=== PATIENT | female | born 2000 | race American Indian/Alaskan Native ===

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

== ENCOUNTER 2018-03-16 23:41 | Emergency (ER) | payer MEDICAID ==
[2018-03-16 23:42] VITALS: BMI 20.3
[2018-03-16 23:50] VITALS: RESP 14; O2SAT 99
[2018-03-17] MEDS ORDERED: Sodium Chloride 0.9% 1,000 ML IV ONE (00:04)
[2018-03-17] MEDS ORDERED: Sodium Chloride 0.9% 500 ML IV ONE ×2 (00:04→02:49)
--- NOTE | 2018-03-17 00:04 | C.PDOC ---
History Of Present Illness 17 y/o female presents to the ED complaining of abdominal pain. Of note, patient is currently 8 weeks . Patient also reports some nausea and vomiting. No fevers, chills, dysuria, vaginal bleeding, or recent fall/trauma. Time Seen by Provider: 03/17/18 00:00 Chief Complaint (Nursing): Abdominal Pain History Per: Patient History/Exam Limitations: no limitations Onset/Duration Of Symptoms: Days Current Symptoms Are (Timing): Still Present Past Medical History Reviewed: Historical Data, Nursing Documentation, Vital Signs Vital Signs: Last Vital Signs Temp 98.6 F 03/16/18 23:47 Pulse 79 03/16/18 23:47 Resp 14 03/16/18 23:47 BP 109/67 03/16/18 23:47 Pulse Ox 99 03/17/18 00:31 - Medical History PMH: Pancreatitis Denies: Chronic Kidney Disease Surgical History: No Surg Hx Family History: States: Unknown Family Hx - Social History Hx Tobacco Use: Yes Hx Alcohol Use: Yes (WAS HEAVY USE, STOPPED SEP 2017) Hx Substance Use: No - Immunization History Hx Tetanus Toxoid Vaccination: Yes Hx Influenza Vaccination: Yes Review Of Systems Except As Marked, All Systems Reviewed And Found Negative. Constitutional: Negative for: Fever, Chills Gastrointestinal: Positive for: Nausea, Vomiting, Abdominal Pain. Negative for : Diarrhea Genitourinary: Negative for: Dysuria, Hematuria, Vaginal Discharge, Vaginal Bleeding Physical Exam - Physical Exam Appears: Non-toxic, No Acute Distress Skin: Normal Color, Warm, Dry Head: Atraumatic, Normacephalic Eye(s): bilateral: Normal Inspection, PERRL, EOMI Nose: Normal Oral Mucosa: Moist Neck: Normal ROM, Supple Chest: Symmetrical Cardiovascular: Rhythm Regular, No Murmur Respiratory: Normal Breath Sounds, No Rales, No Rhonchi, No Wheezing Gastrointestinal/Abdominal: Soft, Tenderness (generalized), No Guarding, No Rebound Back: Normal Inspection, No CVA Tenderness, No Vertebral Tenderness Extremity: Bilateral: Atraumatic, Normal Color And Temperature, Normal ROM Pulses: Left Dorsalis Pedis: Normal, Right Dorsalis Pedis: Normal Neurological/Psych: Oriented x3, Normal Speech, Other (No focal deficits) ED Course And Treatment - Laboratory Results Result Diagrams: 03/17/18 00:13 05/27/18 00:13 O2 Sat by Pulse Oximetry: 99 (RA) Pulse Ox Interpretation: Normal Medical Decision Making Medical Decision Making: Initial Impression: 17 y/o F with abdominal pain and vomiting during Time: 00:03 Initial Plan: * CMP * CBC w/ differential * Beta-HCG quant * UA * Urine culture * IVF hydration * Pending pelvic and abdominal ultrasounds Disposition Counseled Patient/Family Regarding: Diagnosis - Disposition Referrals: [facility] [Outside] Disposition: HOME/ ROUTINE Disposition Time: 03:43 Condition: STABLE Prescriptions: Nitrofurantoin Macrocrystals [Macrobid] 1 cap PO BID #14 cap Instructions: Nausea and Vomiting of , Hyperemesis Gravidarum, Urinary Tract Infections in Adults Forms: [facility] (Polish) - POA Present On Arrival: None - Clinical Impression Clinical Impression: UTI (urinary tract infection) during , Hyperemesis gravidarum - Scribe Statement The provider has reviewed the documentation as recorded by the Scribe (Petra Rain) Provider Attestation: All medical record entries made by the Scribe were at my direction and personally dictated by me. I have reviewed the chart and agree that the record accurately reflects my personal performance of the history, physical exam, medical decision making, and the department course for this patient. I have also personally directed, reviewed, and agree with the discharge instructions and disposition.
[2018-03-17 00:21] LABS: BASO % 0.5 % (0.0-2.0); EOS # 0.2 K/uL (0.0-0.7); EOS % 2.4 % (0.0-4.0); HEMOGLOBIN 14.7 g/dL (11.0-16.0); LYMPH # 1.8 K/uL (1.0-4.3); LYMPH % 26.7 % (20.0-40.0); MEAN CELL VOLUME 88.5 fL (81.0-99.0); MEAN CORPUSCULAR HEMOGLOBIN 31.6 pg (27.0-31.0); MEAN CORPUSCULAR HGB CONC 35.7 g/dL (33.0-37.0); MEAN PLATELET VOLUME 8.6 fL (7.2-11.7); MONO # 0.6 K/uL (0.0-0.8); MONO % 8.6 % (0.0-10.0); NEUT # 4.3 K/uL (1.8-7.0); NEUT % 61.8 % (50.0-75.0); NRBC % 0.1 % (0.0-2.0); RBC 4.64 Mil/uL (3.80-5.20); RED CELL DISTRIBUTION WIDTH 12.5 % (11.5-14.5); WHITE BLOOD COUNT 6.9 K/uL (4.8-10.8)
[2018-03-17 00:32] LABS: ALB/GLOB RATIO 1.3 (1.0-2.1); ALBUMIN 4.7 g/dL (3.5-5.0); ALT/SGPT 22 U/L (9-52); AST/SGOT 22 U/L (14-36); BLOOD UREA NITROGEN 9 mg/dL (7-17); CALCIUM 9.4 mg/dl (8.6-10.4); GFR AFRICAN-AMERICAN > 60; GFR NON-AFRICAN AMERICAN > 60
[2018-03-17 00:39] LABS: SQUAMOUS EPITHIAL 25 /hpf (0-5); URINE BACTERIA RARE (<OCC); URINE BILIRUBIN NEGATIVE (NEGATIVE); URINE BLOOD NEGATIVE (NEGATIVE); URINE CLARITY Hazy (Clear); URINE COLOR Amber (YELLOW); URINE GLUCOSE (UA) NORMAL (Normal); URINE LEUKOCYTE ESTERASE NEG Leu/uL (Negative); URINE PROTEIN 2+ mg/dL (NEGATIVE)
--- NOTE | 2018-03-17 03:33 | US ---
EXAM: US , Transvaginal EXAM DATE/TIME: 03/17/2018 12:03 AM CLINICAL HISTORY: 17 years old, female; Pain; Other: Abd pain; Gestational age or lmp: 3-27-18; TECHNIQUE: Real-time transvaginal obstetrical ultrasound of the maternal pelvis and a first trimester with image documentation. Transvaginal imaging was used for better evaluation of the fetus and adnexa. COMPARISON: Report from a prior pelvic CT of 11/16/2017, which describes a dermoid cyst. The prior study itself is currently unavailable. FINDINGS: Uterus: Measures 9.9 x 4.9 x 6.3 cm. Single intrauterine gestation identified. pole and yolk sac are seen. Estimated gestational age is 6 weeks, 1 day, based on the crown rump length. Estimated delivery date is 11/08/2018. heart motion visualized, at 123 beats per minute. Note that the anatomy, amniotic fluid volume, and placental position cannot be evaluated at this early gestational age. Cervix appears closed, and is normal in length. Right ovary: Within normal limits in appearance. Measures 3.4 x 1.9 x 3.3 cm. Flow seen in the right ovary on color and Doppler imaging, with no evidence of torsion. Left adnexa: Left ovary is seen. Flow is detected in the left ovarian parenchyma on color imaging. In the left adnexa, superior to the left ovary, there is a large 8.3 x 5.3 x 7.9 cm mass identified. This has ultrasound features highly suggestive of an exophytic left ovarian dermoid. It appears diffusely echogenic, with posterior sound attenuation. It has well-defined margins. Free fluid: None seen. IMPRESSION: 6 week, 1 day intrauterine with heart motion. Large 8.3 x 7.9 cm left adnexal mass, most likely representing an exophytic left ovarian dermoid. There is no evidence of left ovarian torsion. See above for remaining findings.
--- NOTE | 2018-03-17 03:40 | US ---
EXAM: US Abdomen Complete EXAM DATE/TIME: 03/17/2018 12:00 AM CLINICAL HISTORY: 17 years old, female; Pain; Abdominal pain; Generalized; ; Additional info: Generalized abd pain TECHNIQUE: Real-time ultrasound of the abdomen (complete) with image documentation. COMPARISON: No relevant prior studies available. FINDINGS: Gallbladder: Within normal limits in appearance, without evidence of gallstones, significant gallbladder wall thickening, or pericholecystic fluid. Reportedly negative sonographic Yeung's sign. Common bile duct: Does not appear abnormally dilated, measuring less than 6 mm in diameter. Liver: Within normal limits in appearance. Measures 13 cm in length. Normal flow seen in the main portal vein on color and Doppler imaging. Pancreas: Incompletely seen due to gas. The pancreatic duct is visualized, and measures 3 mm, which is at the upper limits of normal. Right kidney: Within normal limits in appearance. Measures 11 cm in length. Left kidney: Within normal limits in appearance. Measures 9.3 cm in length. Spleen: Within normal limits in appearance. Measures 9 cm in length. Aorta: Imaged portions appear unremarkable. Inferior vena cava: Imaged portions appear unremarkable. IMPRESSION: Pancreatic duct is top normal in size, 3 mm. This finding is of uncertain clinical significance. Otherwise negative exam. No gallstones or cholecystitis. See above for remaining findings.
[2018-03-17 03:58] VITALS: BP 115/78; PULSE 70; TEMP 98
== END 2018-03-17 03:58 | disposition home or self-care (01) ==
LOC: C.ER 23:41
DX: O23.41 Unspecified infection of urinary tract in pregnancy, first trimester (principal); O21.0 Mild hyperemesis gravidarum; Z3A.01 Less than 8 weeks gestation of pregnancy
CPT/HCPCS: 76700; 76817; 80053; 81001; 84702; 85025; 87086; 96360; 96361; 99283; J7040

== ENCOUNTER 2018-10-12 11:19 | Emergency (ER) | payer MEDICAID ==
[2018-10-12 11:19] VITALS: BMI 20.3
--- NOTE | 2018-10-12 12:32 | C.PDOC ---
History Of Present Illness 18 y/o female presents to the ED complaining of recurrent vomiting and abdominal pain for the past 3-4 weeks. Patient states the vomiting comes and goes, occurring almost daily, associated with decreased appetite. She denies any asso ciated fever, diarrhea, cough, or blood in the vomitus or stool. States she was previously diagnosed with H. pylori but was not treated. Patients auditor internal moved out of state and she is pending appointment with a new specialist on 10/28/18. Time Seen by Provider: 10/12/18 11:49 Chief Complaint (Nursing): Abdominal Pain History Per: Patient History/Exam Limitations: no limitations Onset/Duration Of Symptoms: Intermittent Episodes Current Symptoms Are (Timing): Still Present Location Of Pain/Discomfort: Epigastric Past Medical History Reviewed: Historical Data, Nursing Documentation, Vital Signs Vital Signs: Last Vital Signs Temp 98.1 F 10/12/18 11:22 Pulse 92 H 10/12/18 11:22 Resp 20 10/12/18 11:22 BP Pulse Ox 100 10/12/18 11:22 - Medical History PMH: Pancreatitis Denies: Chronic Kidney Disease Family History: States: Unknown Family Hx - Social History Hx Tobacco Use: Yes Hx Alcohol Use: Yes (WAS HEAVY USE, STOPPED SEP 2017) Hx Substance Use: No - Immunization History Hx Tetanus Toxoid Vaccination: Yes Hx Influenza Vaccination: No Review Of Systems Except As Marked, All Systems Reviewed And Found Negative. Constitutional: Negative for: Fever, Chills ENT: Negative for: Ear Pain Cardiovascular: Negative for: Chest Pain, Edema Respiratory: Negative for: Cough, Shortness of Breath Gastrointestinal: Positive for: Nausea, Vomiting, Abdominal Pain. Negative for: Diarrhea, Hematochezia, Hematemesis Genitourinary: Negative for: Dysuria, Frequency, Incontinence Musculoskeletal: Negative for: Neck Pain Neurological: Negative for: Weakness, Dizziness Physical Exam - Physical Exam Appears: Non-toxic, No Acute Distress Skin: Normal Color, Warm, Dry, No Rash Head: Atraumatic, Normacephalic Eye(s): bilateral: Normal Inspection, PERRL, EOMI Oral Mucosa: Moist Neck: Normal ROM, Supple Chest: Symmetrical Cardiovascular: Rhythm Regular, No Murmur Respiratory: Normal Breath Sounds, No Accessory Muscle Use Gastrointestinal/Abdominal: Bowel Sounds (normal), Soft, Tenderness (mild epigastric tenderness), No Distention, No Guarding, No Rebound Back: No CVA Tenderness, No Vertebral Tenderness Extremity: Normal ROM, No Swelling Extremity: Bilateral: Atraumatic, Normal Color And Temperature, Normal ROM Neurological/Psych: Oriented x3, Normal Speech Gait: Steady ED Course And Treatment - Laboratory Results Result Diagrams: 10/12/18 13:52 10/12/18 13:52 O2 Sat by Pulse Oximetry: 100 (RA) Pulse Ox Interpretation: Normal - Other Rad Pelvic/ US X-Ray: Read By Radiologist Interpretation: Accession No. : [id number]. Patient Name / ID : MUSA POLLARD / [id number]. Exam Date : 10/12/2018 14:13:37 ( Approved ). Study Comment : Sex / Age : F / 18Y. Creator : You Bonilla MD. Dictator : You Bonilla MD. Cylinder Press Feeder : Personalized Living Manager : You Bonilla MD. Approver2 : Report Date : 10/12/2018 15:50:46. My Comment : . Date of service: 10/12/2018. PROCEDURE: OB Pelvic Ultrasound. HISTORY: , pelvic pain. 08/24/2018. COMPARISON: 03/17/2018. FINDINGS: UTERUS: Gestational sac: 17 mm equivalent to 6 weeks 0 days gestational age. No pole identified. 2 mm yolk sac visualized. Heart rate: No cardiac activity observed. age (Ultrasound estimated): 6 weeks 0 days. Erin-gestational hemorrhage: None. Date of delivery (Ultrasound estimated) : 06/07/2019. Uterus measures 9.8 x 5.6 x 6.2 cm. Normal in size and appearance. CERVIX: Measures 3.8 cm. Long and closed. No cervical abnormality seen. RIGHT OVARY: Measures 2.6 x 2.3 x 2.2 cm. No mass lesion. Normal flow. LEFT OVARY: Measures 2.8 x 2.2 x 1.4 cm. Echogenic left ovarian mass, 7.9 x 6.3 x 8.9 cm, with posterior acoustic shadowing, consistent with dermoid tumor. The this was seen on prior ultrasound examination as well, and corresponds to a mass on CT examination of 11/16/2017 with characteristic appearance of dermoid tumor. No differential diagnosis. Normal flow demonstrated in left ovary. FREE FLUID: There is fluid in the cul-de-sac. OTHER FINDINGS: None. IMPRESSION: Intrauterine gestational sac corresponding to approximately 6 weeks 0 days, without identifiable pole or cardiac activity. No subchorionic hemorrhage. Follow-up with transvaginal pelvic ultrasound and serial beta HCG is advised. Incidental left ovarian dermoid tumor. No evidence of ovarian torsion. Medical Decision Making Medical Decision Making: Plan: Blood work and urine sent for analysis. Patient given IV fluids, 20 mg Pepcid, and 4 mg Zofran. Progress: Labs reviewed. (+) Urine HCG. Ordered pelvic/OB ultrasound. Ultrasound demonstrates IUP, age of 6 weeks, with no heart tones. Findings discussed with patient. Beta-hcg was ordered but the patient eloped prior to discharge. Disposition - Disposition Disposition: ELOPEMENT - ER ONLY Disposition Time: 16:37 Condition: STABLE Additional Instructions: Follow up with the medical doctor within 1-2 days. Return if worsened, Instructions: Stomach Pain in Early Forms: [employer] [employer] (Latvian) - Clinical Impression Clinical Impression: Abdominal pain, Hyperemesis gravidarum - PA / INSIDE SALES RECRUITER / Resident Statement MD/DO has reviewed & agrees with the documentation as recorded. - Scribe Statement The provider has reviewed the documentation as recorded by the Sparkleiblaila Rain All medical record entries made by the Sparkleibe were at my direction and personally dictated by me. I have reviewed the chart and agree that the record accurately reflects my personal performance of the history, physical exam, medical decision making, and the department course for this patient. I have also personally directed, reviewed, and agree with the discharge instructions and disposition.
[2018-10-12] MEDS ORDERED: Sodium Chloride 0.9% 1,000 ML IV ONE (12:42)
[2018-10-12 13:18] LABS: HCG,QUALITATIVE URINE POSITIVE (NEGATIVE)
[2018-10-12 13:24] LABS: SQUAMOUS EPITHIAL 1 /hpf (0-5); URINE BACTERIA OCC (<OCC); URINE BILIRUBIN NEGATIVE (NEGATIVE); URINE BLOOD NEGATIVE (NEGATIVE); URINE CLARITY Clear (Clear); URINE COLOR Yellow (YELLOW); URINE GLUCOSE (UA) NORMAL (Normal); URINE LEUKOCYTE ESTERASE NEG Leu/uL (Negative); URINE PROTEIN 1+ mg/dL (NEGATIVE)
[2018-10-12 13:56] LABS: BASO % 0.2 % (0.0-2.0); EOS # 0.1 K/uL (0.0-0.7); EOS % 1.3 % (0.0-4.0); HEMOGLOBIN 14.7 g/dL (11.0-16.0); LYMPH # 1.4 K/uL (1.0-4.3); MEAN CELL VOLUME 91.6 fL (81.0-99.0); MEAN CORPUSCULAR HEMOGLOBIN 31.1 pg (27.0-31.0); MEAN PLATELET VOLUME 8.7 fL (7.2-11.7); MONO # 0.6 K/uL (0.0-0.8); MONO % 6.2 % (0.0-10.0); NEUT % 78.3 % (50.0-75.0); RBC 4.72 Mil/uL (3.80-5.20); RED CELL DISTRIBUTION WIDTH 13.2 % (11.5-14.5); WHITE BLOOD COUNT 10.2 K/uL (4.8-10.8)
[2018-10-12 14:09] LABS: ALB/GLOB RATIO 1.4 (1.0-2.1); ALBUMIN 4.3 g/dL (3.5-5.0); ALT/SGPT 28 U/L (9-52); AST/SGOT 20 U/L (14-36); BLOOD UREA NITROGEN 9 mg/dL (7-17); CALCIUM 9.4 mg/dl (8.6-10.4); GFR NON-AFRICAN AMERICAN > 60; LIPASE 43 U/L (23-300)
--- NOTE | 2018-10-12 15:54 | US ---
Date of service: 10/12/2018 PROCEDURE: OB Pelvic Ultrasound HISTORY: , pelvic pain 08/24/2018 COMPARISON: 03/17/2018 FINDINGS: UTERUS: Gestational sac: 17 mm equivalent to 6 weeks 0 days gestational age No pole identified. 2 mm yolk sac visualized Heart rate: No cardiac activity observed age (Ultrasound estimated): 6 weeks 0 days Erin-gestational hemorrhage: None. Date of delivery (Ultrasound estimated) : 06/07/2019 Uterus measures 9.8 x 5.6 x 6.2 cm. Normal in size and appearance. CERVIX: Measures 3.8 cm. Long and closed. No cervical abnormality seen. RIGHT OVARY: Measures 2.6 x 2.3 x 2.2 cm. No mass lesion. Normal flow. LEFT OVARY: Measures 2.8 x 2.2 x 1.4 cm. Echogenic left ovarian mass, 7.9 x 6.3 x 8.9 cm, with posterior acoustic shadowing, consistent with dermoid tumor. The this was seen on prior ultrasound examination as well, and corresponds to a mass on CT examination of 11/16/2017 with characteristic appearance of dermoid tumor. No differential diagnosis. Normal flow demonstrated in left ovary. FREE FLUID: There is fluid in the cul-de-sac OTHER FINDINGS: None. IMPRESSION: Intrauterine gestational sac corresponding to approximately 6 weeks 0 days, without identifiable pole or cardiac activity. No subchorionic hemorrhage. Follow-up with transvaginal pelvic ultrasound and serial beta HCG is advised. Incidental left ovarian dermoid tumor. No evidence of ovarian torsion.
[2018-10-12 16:37] VITALS: BP 122/70; PULSE 70; RESP 16; TEMP 98.2
[2018-10-12 16:39] VITALS: O2SAT 100
== END 2018-10-12 16:00 | disposition left against medical advice (07) ==
LOC: C.ER 11:19
DX: O21.0 Mild hyperemesis gravidarum (principal); O26.891 Other specified pregnancy related conditions, first trimester; R10.9 Unspecified abdominal pain; Z3A.01 Less than 8 weeks gestation of pregnancy; Z72.0 Tobacco use
CPT/HCPCS: 76805; 76817; 80053; 81001; 83690; 84702; 84703; 85025; 96361; 96374; 96375; 99285; J2405; J7030

== ENCOUNTER 2018-10-15 10:53 | Emergency (ER) | payer MEDICAID ==
[2018-10-15 10:53] VITALS: BMI 20.3
[2018-10-15] MEDS ORDERED: Sodium Chloride 0.9% 1,000 ML IV ONE (11:09)
--- NOTE | 2018-10-15 11:10 | C.PDOC ---
History Of Present Illness 18 y/o female, A1, presents to the ER complaining of abdominal pain, nausea, and vomiting which has been present for the past 1 month. Patient states that she vomited x4 yesterday and vomited x3 today. Patient denies having headache, fever, chills, vaginal bleeding, vaginal discharge, dysuris, and hematuria. Time Seen by Provider: 10/15/18 11:08 Chief Complaint (Nursing): Abdominal Pain History Per: Patient History/Exam Limitations: no limitations Onset/Duration Of Symptoms: Days Current Symptoms Are (Timing): Still Present Severity: Moderate Past Medical History Reviewed: Historical Data, Nursing Documentation, Vital Signs Vital Signs: Last Vital Signs Temp 98 F 10/15/18 11:01 Pulse 96 H 10/15/18 11:01 Resp 18 10/15/18 11:01 BP 115/73 10/15/18 11:01 Pulse Ox 98 10/15/18 11:01 - Medical History PMH: Pancreatitis Denies: Chronic Kidney Disease Surgical History: No Surg Hx Family History: States: No Known Family Hx - Social History Hx Tobacco Use: Yes Hx Alcohol Use: Yes (WAS HEAVY USE, STOPPED SEP 2017) Hx Substance Use: No - Immunization History Hx Tetanus Toxoid Vaccination: Yes Hx Influenza Vaccination: No Review Of Systems Except As Marked, All Systems Reviewed And Found Negative. Constitutional: Negative for: Fever, Chills Gastrointestinal: Positive for: Nausea, Vomiting, Abdominal Pain Genitourinary: Negative for: Dysuria, Hematuria, Vaginal Discharge, Vaginal Bleeding Neurological: Negative for: Headache Physical Exam - Physical Exam Appears: Non-toxic, No Acute Distress Skin: Normal Color, Warm, Dry Head: Atraumatic, Normacephalic Eye(s): bilateral: Normal Inspection Nose: Normal Oral Mucosa: Moist Neck: Supple Chest: Symmetrical Cardiovascular: Rhythm Regular Respiratory: Normal Breath Sounds, No Rales, No Rhonchi, No Wheezing Gastrointestinal/Abdominal: Soft, Tenderness (diffuse tenderness), No Guarding, No Rebound Neurological/Psych: Oriented x3, Normal Speech ED Course And Treatment - Laboratory Results Result Diagrams: 10/15/18 11:27 10/15/18 11:27 O2 Sat by Pulse Oximetry: 98 (RA) Pulse Ox Interpretation: Normal - CT Scan/US Obstetrics US Other Rad Studies (CT/US): Read By Radiologist, Radiology Report Reviewed CT/US Interpretation: Date of service: 10/15/2018. PROCEDURE: OB Pelvic Ultrasound. HISTORY: ABDOMINAL PAIN. LMP: 08/24/2018 suggests 7 week 3 day gestation. COMPARISON: Obstetric ultrasound 10/12/2018. FINDINGS: UTERUS: Gestational sac: Single intrauterine gestation. Heart rate: 139 bpm. age (Ultrasound estimated): 6 weeks 1 day based on mean crown-rump length measurement of 0.39 cm. Erin-gestational hemorrhage: None. Date of delivery (Ultrasound estimated) : Yolk sac is identified as well, measuring 0.25 cm. Mean gestational sac size 2.28 cm. Uterus measures 9.3 x 6.2 x 6.1 cm. Normal in size and appearance, anteverted. CERVIX: Measures 3.11 cm. Long and closed. No cervical abnormality seen. RIGHT OVARY: Measures 3.0 x 2.6 x 3.4 cm. No mass lesion. Normal flow. LEFT OVARY: Measures 2.6 x 1.8 x 1.8 cm. A large mass is identified in the left adnexal compartment anteriorly, measuring 7.9 x 5.8 x 8.9 cm with prominent posterior acoustic shadowing corresponding to dermoid tumor seen in prior obstetric ultrasound 10/12/2018 as well as abdomen and pelvis CT with contrast 11/16/2017. Normal flow. FREE FLUID: None. OTHER FINDINGS: None. IMPRESSION: Single viable intrauterine gestation is identified with average ultrasonic age of 6 weeks 1 day based on crown-rump length measurement. No definitive gestational related hemorrhage appreciable. No suspicious pelvic fluid collection evident. Left adnexal dermoid tumor reiterated. No pattern to suggest ovarian torsion bilaterally. Continued clinical follow-up advised. Medical Decision Making Medical Decision Making: Plan: --Labs --UA --US-Transvag. --Tylenol PO --Zofran IV --IV Fluids Updates: Patient was evaluated by , COIL WINDER. recommended that patient be discharged with prescriptions for Zofran, Pepcid, and Vitamin B6. On re-evaluation, patient states that her symptoms have resolved. Patient has been instructed about the BRAT diet. She has been discharged and instructed to follow up with her COIL WINDER on 10/17/18 as scheduled. Disposition Counseled Patient/Family Regarding: Studies Performed, Diagnosis, Need For Followup, Rx Given - Disposition Referrals: Non [facility] Provider, [Non-Staff] - Disposition: HOME/ ROUTINE Disposition Time: 15:43 Condition: STABLE Additional Instructions: FOLLOW UP WITH YOUR COIL WINDER ON 10/17/18 SCHEDULED. BREAD, BANANA, RICE, APPLE SAUCE, TEA, TOAST DIET RECOMMENDED. DRINK PLENTY OF WATER, GATODADE. IF SYMPTOMS GET WORSE OR ANY NEW CONCERNING SYMPTOMS DEVELOP RETURN TO ED. Prescriptions: Famotidine [Pepcid] 20 mg PO BID #30 tab Vit #76/Iron,Carb/FA [Prenatabs Rx Tablet] 1 each PO DAILY #30 tablet Pyridoxine [Vitamin B6] 1 tab PO DAILY #30 tab Ondansetron ODT [Zofran ODT] 1 odt PO TID #15 odt Instructions: Acid Reflux (Gastroesophageal Reflux Disease) During , - The Second Month Forms: [employer] [facility] / [employer] (Portuguese) - Clinical Impression Clinical Impression: , Abdominal pain, Vomiting - PA / NANOTECHNOLOGIST / Resident Statement MD/DO has reviewed & agrees with the documentation as recorded. - Scribe Statement The provider has reviewed the documentation as recorded by the Carlita Griffin Provider Attestation All medical record entries made by the Carlita were at my direction and personally dictated by me. I have reviewed the chart and agree that the record accurately reflects my personal performance of the history, physical exam, medical decision making, and the department course for this patient. I have also personally directed, reviewed, and agree with the discharge instructions and disposition.
[2018-10-15 11:21] LABS: SQUAMOUS EPITHIAL 37 /hpf (0-5); URINE BILIRUBIN NEGATIVE (NEGATIVE); URINE BLOOD NEGATIVE (NEGATIVE); URINE CLARITY Hazy (Clear); URINE COLOR Yellow (YELLOW); URINE GLUCOSE (UA) NORMAL (Normal); URINE LEUKOCYTE ESTERASE NEG Leu/uL (Negative); URINE PROTEIN 1+ mg/dL (NEGATIVE)
[2018-10-15 11:22] LABS: HCG,QUALITATIVE URINE POSITIVE (NEGATIVE)
[2018-10-15] MEDS ORDERED: Sodium Chloride 0.9% 1,000 ML ONE (11:29)
[2018-10-15 11:31] LABS: BASO % 0.6 % (0.0-2.0); EOS # 0.1 K/uL (0.0-0.7); EOS % 1.5 % (0.0-4.0); LYMPH # 1.1 K/uL (1.0-4.3); LYMPH % 16.3 % (20.0-40.0); MEAN CELL VOLUME 89.7 fL (81.0-99.0); MEAN CORPUSCULAR HGB CONC 34.5 g/dL (33.0-37.0); MEAN PLATELET VOLUME 8.4 fL (7.2-11.7); MONO # 0.5 K/uL (0.0-0.8); MONO % 7.4 % (0.0-10.0); NEUT # 4.9 K/uL (1.8-7.0); NEUT % 74.2 % (50.0-75.0); RBC 4.83 Mil/uL (3.80-5.20); RED CELL DISTRIBUTION WIDTH 13.2 % (11.5-14.5); WHITE BLOOD COUNT 6.7 K/uL (4.8-10.8)
[2018-10-15 11:49] LABS: ALB/GLOB RATIO 1.3 (1.0-2.1); ALBUMIN 4.4 g/dL (3.5-5.0); ALT/SGPT 23 U/L (9-52); AST/SGOT 23 U/L (14-36); BLOOD UREA NITROGEN 11 mg/dL (7-17); CALCIUM 9.6 mg/dl (8.6-10.4); GFR NON-AFRICAN AMERICAN > 60
--- NOTE | 2018-10-15 14:25 | US ---
Date of service: 10/15/2018 PROCEDURE: OB Pelvic Ultrasound HISTORY: ABDOMINAL PAIN LMP: 08/24/2018 suggests 7 week 3 day gestation. COMPARISON: Obstetric ultrasound 10/12/2018. FINDINGS: UTERUS: Gestational sac: Single intrauterine gestation. Heart rate: 139 bpm. age (Ultrasound estimated): 6 weeks 1 day based on mean crown-rump length measurement of 0.39 cm. Erin-gestational hemorrhage: None. Date of delivery (Ultrasound estimated) : Yolk sac is identified as well, measuring 0.25 cm. Mean gestational sac size 2.28 cm. Uterus measures 9.3 x 6.2 x 6.1 cm. Normal in size and appearance, anteverted. CERVIX: Measures 3.11 cm. Long and closed. No cervical abnormality seen. RIGHT OVARY: Measures 3.0 x 2.6 x 3.4 cm. No mass lesion. Normal flow. LEFT OVARY: Measures 2.6 x 1.8 x 1.8 cm. A large mass is identified in the left adnexal compartment anteriorly, measuring 7.9 x 5.8 x 8.9 cm with prominent posterior acoustic shadowing corresponding to dermoid tumor seen in prior obstetric ultrasound 10/12/2018 as well as abdomen and pelvis CT with contrast 11/16/2017. Normal flow. FREE FLUID: None. OTHER FINDINGS: None. IMPRESSION: Single viable intrauterine gestation is identified with average ultrasonic age of 6 weeks 1 day based on crown-rump length measurement. No definitive gestational related hemorrhage appreciable. No suspicious pelvic fluid collection evident. Left adnexal dermoid tumor reiterated. No pattern to suggest ovarian torsion bilaterally. Continued clinical follow-up advised.
[2018-10-15 14:43] VITALS: TEMP 97.6
[2018-10-15 14:47] LABS: BARBITURATES, UR NEGATIVE (NEGATIVE); BENZODIAZEPINES, UR NEGATIVE (NEGATIVE); OPIATES, UR NEGATIVE (NEGATIVE); PHENCYCLIDINE, UR NEGATIVE (NEGATIVE)
[2018-10-15 16:28] VITALS: BP 109/68; PULSE 86; RESP 18
[2018-10-15 16:35] VITALS: O2SAT 98
== END 2018-10-15 16:28 | disposition home or self-care (01) ==
LOC: C.ER 10:53
DX: O21.9 Vomiting of pregnancy, unspecified (principal); O26.891 Other specified pregnancy related conditions, first trimester; R10.9 Unspecified abdominal pain; Z3A.01 Less than 8 weeks gestation of pregnancy
CPT/HCPCS: 76805; 76817; 80053; 80324; 80345; 80346; 80349; 80353; 80358; 80361; 81001; 83992; 84702; 84703; 85025; 96361; 96374; 99285; J2405; J7030

== ENCOUNTER 2018-10-20 01:39 | Emergency (ER) | payer MEDICAID ==
[2018-10-20 01:40] VITALS: BMI 20.3
[2018-10-20] MEDS ORDERED: Dextrose 5%/0.45% NS 1,000 ML IV SCH (02:45)
[2018-10-20] MEDS ORDERED: Dextrose 5%/0.45% NS 1,000 ML IV ONE (02:53)
[2018-10-20 02:55] LABS: BASO # 0.1 K/uL (0.0-0.2); BASO % 0.8 % (0.0-2.0); EOS # 0.2 K/uL (0.0-0.7); HEMOGLOBIN 13.9 g/dL (11.0-16.0); LYMPH # 1.6 K/uL (1.0-4.3); LYMPH % 19.7 % (20.0-40.0); MEAN CELL VOLUME 90.1 fL (81.0-99.0); MEAN CORPUSCULAR HEMOGLOBIN 30.7 pg (27.0-31.0); MEAN PLATELET VOLUME 8.7 fL (7.2-11.7); MONO # 0.6 K/uL (0.0-0.8); MONO % 6.7 % (0.0-10.0); NEUT # 5.9 K/uL (1.8-7.0); NEUT % 70.8 % (50.0-75.0); RBC 4.52 Mil/uL (3.80-5.20); WHITE BLOOD COUNT 8.3 K/uL (4.8-10.8)
[2018-10-20 03:06] LABS: ALB/GLOB RATIO 1.3 (1.0-2.1); ALT/SGPT 21 U/L (9-52); AST/SGOT 26 U/L (14-36); BLOOD UREA NITROGEN 5 mg/dL (7-17); GFR NON-AFRICAN AMERICAN > 60; LIPASE 61 U/L (23-300)
--- NOTE | 2018-10-20 03:57 | C.PDOC ---
History Of Present Illness 18 y/o female, whose LMP was beginning of August and is positive for , comes in for the third time since 10/12/18 for nausea, vomiting, and epigastric pain. Patient states she vomited 3 times today and is taking medications that were prescribed to her last visit, but states they are not working. Denies any vaginal bleeding or urinary symptoms. Time Seen by Provider: 10/20/18 02:13 Chief Complaint (Nursing): GI Problem History Per: Patient History/Exam Limitations: no limitations Onset/Duration Of Symptoms: Days Current Symptoms Are (Timing): Still Present Past Medical History Reviewed: Historical Data, Nursing Documentation, Vital Signs Vital Signs: Last Vital Signs Temp 98.3 F 10/20/18 01:51 Pulse 89 10/20/18 01:51 Resp 18 10/20/18 01:51 BP 112/66 10/20/18 01:51 Pulse Ox 100 10/20/18 01:51 - Medical History PMH: Gastritis, Pancreatitis Denies: Chronic Kidney Disease Family History: States: No Known Family Hx - Social History Hx Tobacco Use: Yes Hx Alcohol Use: No Hx Substance Use: No - Immunization History Hx Tetanus Toxoid Vaccination: Yes Hx Influenza Vaccination: No Hx Pneumococcal Vaccination: No Review Of Systems Constitutional: Negative for: Fever Cardiovascular: Negative for: Chest Pain Respiratory: Negative for: Shortness of Breath Gastrointestinal: Positive for: Nausea, Vomiting, Abdominal Pain (epigastric) Genitourinary: Negative for: Frequency, Incontinence, Vaginal Bleeding Skin: Negative for: Rash Physical Exam - Physical Exam Appears: Non-toxic, No Acute Distress Skin: Warm, Dry Head: Atraumatic, Normacephalic Eye(s): bilateral: Normal Inspection Oral Mucosa: Dry (mild) Neck: Supple Chest: Symmetrical Cardiovascular: Rhythm Regular, No Murmur Respiratory: Normal Breath Sounds, No Rales, No Rhonchi, No Wheezing Gastrointestinal/Abdominal: Soft, Tenderness (mild epigastric tenderness), No Distention, No Guarding, No Rebound Back: No CVA Tenderness Extremity: Normal ROM Extremity: Bilateral: Atraumatic, Normal Color And Temperature, Normal ROM Neurological/Psych: Oriented x3, Normal Speech, Normal Cognition ED Course And Treatment - Laboratory Results Result Diagrams: 10/20/18 02:49 10/20/18 02:49 O2 Sat by Pulse Oximetry: 100 (RA) Pulse Ox Interpretation: Normal Medical Decision Making Medical Decision Making: Plan: --Bloodwork --Urinalysis --Pepcid IV --Reglan IV --IV fluids 0400 pt lying comfortably in bed,. no vomiting. does not want to stay in ed any longer. tolerates po. will d/c with reglan. Disposition Counseled Patient/Family Regarding: Diagnosis, Need For Followup, Rx Given - Disposition Disposition: HOME/ ROUTINE Disposition Time: 04:01 Condition: IMPROVED Additional Instructions: Take one tab metclopromide every 8 hours if needed for nausea. Follow up with gynecology as soon as possible. Return to er for worse symptoms, vagina bleeding. abdominal pain, any other concerns. Prescriptions: Metoclopramide [Reglan] 10 mg PO Q8 #12 tab Instructions: Nausea and Vomiting of (DC) Forms: [employer] (Nepali), General Discharge Instructions - Clinical Impression Clinical Impression: Hyperemesis gravidarum - PA / CAR SHAKEOUT OPERATOR / Resident Statement MD/DO has reviewed & agrees with the documentation as recorded. - Scribe Statement The provider has reviewed the documentation as recorded by the Scriblaila Dos Santos All medical record entries made by the Sparkleiblaila were at my direction and personally dictated by me. I have reviewed the chart and agree that the record accurately reflects my personal performance of the history, physical exam, medical decision making, and the department course for this patient. I have also personally directed, reviewed, and agree with the discharge instructions and disposition.
[2018-10-20 04:17] LABS: SQUAMOUS EPITHIAL 3 /hpf (0-5); URINE BILIRUBIN NEGATIVE (NEGATIVE); URINE BLOOD NEGATIVE (NEGATIVE); URINE CLARITY Clear (Clear); URINE COLOR Yellow (YELLOW); URINE GLUCOSE (UA) NORMAL (Normal); URINE LEUKOCYTE ESTERASE NEG Leu/uL (Negative); URINE PROTEIN NEGATIVE (NEGATIVE); URINE UROBILINOGEN NORMAL mg/dL (0.2-1.0)
[2018-10-20 04:20] VITALS: BP 113/73; PULSE 82; RESP 16; TEMP 98.8
[2018-10-20 05:12] VITALS: O2SAT 100
== END 2018-10-20 04:20 | disposition home or self-care (01) ==
LOC: C.ER 01:39
DX: O21.0 Mild hyperemesis gravidarum (principal); Z3A.00 Weeks of gestation of pregnancy not specified
CPT/HCPCS: 80053; 81001; 83690; 84702; 85025; 96374; 99284; J2765; J7042

== ENCOUNTER 2018-12-17 22:11 | Emergency (ER) | payer MEDICAID ==
[2018-12-17 22:12] VITALS: BMI 20.3
[2018-12-17 22:30] VITALS: O2SAT 99
[2018-12-17] MEDS ORDERED: Sodium Chloride 0.9% 1,000 ML IV ONE (22:42)
--- NOTE | 2018-12-17 22:42 | C.PDOC ---
History Of Present Illness Patient complaining of abdominal pain, midepigastric burning, nausea and some vomiting. No f/c. Decreased po intake.. Pills for her gastritis "not helping" Time Seen by Provider: 12/17/18 22:42 Chief Complaint (Nursing): Abdominal Pain History Per: Patient History/Exam Limitations: no limitations Onset/Duration Of Symptoms: Days Current Symptoms Are (Timing): Still Present Context: Other Severity: Moderate Pain Scale Rating Of: 4 Location Of Pain/Discomfort: Epigastric Radiation Of Pain To:: None Quality Of Discomfort: Dull, Aching, Burning Associated Symptoms: Nausea, Vomiting, Diarrhea. denies: Fever, Chills Exacerbating Factors: None Alleviating Factors: None Last Bowel Movement: Today Recent travel outside of the [place]: No Additional History Per: Patient Abnormal Vaginal Bleeding: No Past Medical History Reviewed: Historical Data, Nursing Documentation, Vital Signs Vital Signs: Last Vital Signs Temp 99.3 F 12/17/18 22:26 Pulse 81 12/17/18 22:26 Resp 20 12/17/18 22:26 BP 116/73 12/17/18 22:26 Pulse Ox 99 12/17/18 22:26 - Medical History PMH: Gastritis, Pancreatitis Denies: Chronic Kidney Disease Family History: States: No Known Family Hx - Social History Hx Tobacco Use: Yes Hx Alcohol Use: No Hx Substance Use: No - Immunization History Hx Tetanus Toxoid Vaccination: Yes Hx Influenza Vaccination: No Hx Pneumococcal Vaccination: No Review Of Systems Constitutional: Negative for: Fever, Chills Cardiovascular: Negative for: Chest Pain Respiratory: Negative for: Shortness of Breath Gastrointestinal: Positive for: Nausea, Vomiting, Abdominal Pain Genitourinary: Negative for: Dysuria Musculoskeletal: Negative for: Back Pain Skin: Negative for: Rash Neurological: Negative for: Weakness Psych: Negative for: Anxiety Physical Exam - Physical Exam Appears: Non-toxic Skin: Warm, Dry Oral Mucosa: Dry Chest: Symmetrical Cardiovascular: Rhythm Regular Respiratory: No Rales, No Rhonchi, No Wheezing Gastrointestinal/Abdominal: Bowel Sounds (tympanic to percussion), Soft, Tenderness, No Distention, No Guarding, No Rebound Back: No CVA Tenderness Extremity: Normal ROM Extremity: Bilateral: Atraumatic Neurological/Psych: Oriented x3 Gait: Steady ED Course And Treatment - Laboratory Results Result Diagrams: 12/17/18 23:26 12/17/18 23:26 O2 Sat by Pulse Oximetry: 99 Against Medical Advice - AMA Patient Left Against Medical Advice: The patient declines admission to the hospital and wishes to leave the Emergency Department. This action is against my medical advice. This decision was made with informed refusal. The patient was told that admission to the hospital is necessary. Explanation of the reasons why were discussed. The risks of leaving were explained to the patient and include, but are not limited to, worsening of known or currently unknown conditions, permanent disability and from undiagnosed or untreated conditions. The patient has the capacity to make this informed decision and understands my explanation of the current medical problem and risks of leaving. The patient voluntarily accepts these risks and signed an AMA form documenting our conversation. The patient was given the opportunity to ask questions and reconsider. The patient was encouraged to return to the Emergency Department at any time for further care. Disposition Counseled Patient/Family Regarding: Studies Performed, Diagnosis, Need For Followup, Rx Given - Disposition Referrals: Halley Robles MD [Medical Doctor] - Disposition: HOME/ ROUTINE Disposition Time: 22:42 Condition: FAIR Additional Instructions: Please return if symptoms recur Prescriptions: Ondansetron ODT [Zofran ODT] 1 odt PO BID PRN #6 odt PRN Reason: Nausea/Vomiting Pantoprazole Sodium [Protonix] 40 mg PO DAILY #14 ect Instructions: Acute Abdomen (Belly Pain), Adult (DC) Forms: [employer] (Scottish) - Clinical Impression Clinical Impression: Abdominal pain, Vomiting
[2018-12-17] MEDS ORDERED: Sodium Chloride 0.9% 1,000 ML ONE (23:20)
[2018-12-17 23:29] LABS: BASO % 0.3 % (0.0-2.0); EOS # 0.5 K/uL (0.0-0.7); LYMPH # 1.5 K/uL (1.0-4.3); LYMPH % 16.7 % (20.0-40.0); MEAN CORPUSCULAR HEMOGLOBIN 30.8 pg (27.0-31.0); MEAN CORPUSCULAR HGB CONC 33.1 g/dL (33.0-37.0); MEAN PLATELET VOLUME 9.2 fL (7.2-11.7); MONO # 0.6 K/uL (0.0-0.8); MONO % 6.3 % (0.0-10.0); NEUT # 6.5 K/uL (1.8-7.0); NEUT % 70.7 % (50.0-75.0); RBC 4.55 Mil/uL (3.80-5.20); RED CELL DISTRIBUTION WIDTH 13.7 % (11.5-14.5); WHITE BLOOD COUNT 9.1 K/uL (4.8-10.8)
[2018-12-17 23:39] LABS: INR 1.1; PROTHROMBIN TIME 11.7 SECONDS (9.7-12.2)
[2018-12-17 23:41] LABS: SQUAMOUS EPITHIAL 9 /hpf (0-5); URINE BACTERIA FEW (<OCC); URINE BILIRUBIN NEGATIVE (NEGATIVE); URINE BLOOD NEGATIVE (NEGATIVE); URINE CLARITY Hazy (Clear); URINE COLOR Yellow (YELLOW); URINE GLUCOSE (UA) NORMAL (Normal); URINE LEUKOCYTE ESTERASE TRACE Leu/uL (Negative); URINE PROTEIN NEGATIVE (NEGATIVE); URINE UROBILINOGEN NORMAL mg/dL (0.2-1.0)
[2018-12-17 23:42] LABS: BLOOD UREA NITROGEN 13 mg/dL (7-17); CALCIUM 8.8 mg/dl (8.6-10.4); GFR NON-AFRICAN AMERICAN > 60; LIPASE 337 U/L (23-300)
[2018-12-17 23:43] LABS: HCG,QUALITATIVE URINE NEGATIVE (NEGATIVE)
[2018-12-17 23:46] LABS: ALB/GLOB RATIO 1.4 (1.0-2.1); ALBUMIN 4.3 g/dL (3.5-5.0); ALT/SGPT 9 U/L (9-52); AST/SGOT 40 U/L (14-36)
[2018-12-17] MEDS ORDERED: Iodixanol 320 MG/ML 100 ML BOTTLE IV ONE (23:54)
[2018-12-18 01:45] VITALS: BP 103/61; PULSE 75; RESP 18; TEMP 98.2
--- NOTE | 2018-12-18 10:33 | CT ---
Date of service: 12/18/2018 PROCEDURE: CT Abdomen and Pelvis. HISTORY: Mid epigastric pain COMPARISON: None. TECHNIQUE: Contiguous axial images of the abdomen and pelvis performed following intravenous injection of approximately 100 cc Visipaque 320 contrast material. Additional 2D sagittal and coronal reformats generated. And Sagittal reformats generated. Radiation dose: Total exam DLP = 337.69 mGy-cm. This CT exam was performed using one or more of the following dose reduction techniques: Automated exposure control, adjustment of the mA and/or kV according to patient size, and/or use of iterative reconstruction technique. FINDINGS: LOWER THORAX: Heart size within range of normal. No significant pericardial effusion. Lung bases clear. No evidence of effusion or basilar pneumothorax. LIVER: Is liver exhibits normal size measuring approximately 15 0.5 cm in CC dimension. No obvious hepatic masses or collections. Portal and splenic veins are opacified. GALLBLADDER AND BILE DUCTS: The gallbladder is physiologically distended. No evidence of intraluminal gallbladder calculi. PANCREAS: The pancreas exhibits relatively normal appearance however there is mild dilatation of the pancreatic duct nonspecific. No obvious pancreatic mass is identified. Follow-up right upper quadrant ultrasound and/or MRCP may be prudent for further evaluation. SPLEEN: Spleen exhibits normal size and attenuation pattern without mass collection or calcification. ADRENALS: No adrenal lesions. KIDNEYS AND URETERS: The kidneys exhibit relatively symmetric nephrograms. No evidence of nephrolithiasis or hydronephrosis. BLADDER: The urinary bladder is incompletely distended and probably partially compressed by the aforementioned dermoid cyst. REPRODUCTIVE: There is a large (approximately 6.3 x 6.5 x 5.4 cm) rounded fatty lesion seen in the anterior pelvis with what appears represent a small endoluminal surface calcification and an adjacent rounded soft tissue component which also projects into the lumen. This most likely represents a large the dermoid cyst APPENDIX: Appendix is not seen with complete certainty on this exam however no obvious inflammatory changes right lower quadrant of the abdomen. BOWEL: Evaluation of the bowel is somewhat limited due to the lack of oral contrast material. The stomach is partially distended with food debris liquid and air. There are multiple partially fluid-filled loops of small bowel the few of which are slightly distended located in the right aspect of the abdomen and pelvis region.. Findings are nonspecific and could represent a mild ileus or mild enteritis. Clinical correlation recommended. No evidence of acute mechanical bowel obstruction.. Moderate amount of stool seen within the cecum and proximal ascending colon however the remaining colon is relatively collapsed and therefore difficult to evaluate. Note however that there is slight wall thickening of the distal transverse descending and sigmoid colon in part due to collapse however the possibility of a mild colitis not excluded. Clinical correlation recommended. PERITONEUM: Unremarkable. No fluid collection. No free air. There appears to be a small amount of free fluid in the pelvis LYMPH NODES: Unremarkable. No enlarged lymph nodes. VASCULATURE: Unremarkable. No aortic aneurysm. No aortic atherosclerotic calcification or mural plaque present. BONES: No fracture or destructive lesion. OTHER FINDINGS: None. IMPRESSION: Large dermoid cyst as described. There are multiple fluid-filled loops of small bowel few which are slightly distended all of which are predominately located in the right abdomen and pelvis region suggesting an ileus or mild enteritis. Questionable wall thickening of the sigmoid and descending as well as distal transverse colon; findings could represent a mild enterocolitis. Clinical correlation recommended.
== END 2018-12-18 01:25 | disposition left against medical advice (07) ==
LOC: C.ER 22:11
DX: R10.9 Unspecified abdominal pain (principal); R11.10 Vomiting, unspecified; K29.70 Gastritis, unspecified, without bleeding
CPT/HCPCS: 74177; 80053; 81001; 83690; 84703; 85025; 85610; 85730; 96361; 96374; 96375; 99285; J2405; J7030; Q9967

== ENCOUNTER 2019-01-15 18:03 | Emergency (ER) | payer MEDICAID ==
[2019-01-15 18:03] VITALS: BMI 20.3
[2019-01-15 18:12] VITALS: O2SAT 100
--- NOTE | 2019-01-15 18:40 | C.PDOC ---
History Of Present Illness 18 year old female presents to the ED complaining of chronic abdominal pain worsening for the past 3 days. Reports she was diagnosed with H. pylori by endoscopy in the past but was not treated. During her follow up visit, she had 2 H.pylori breath tests that were negative. She was prescribed PPI and Pepcid but she does not take them consistently. States she has abdominal pain associated with nausea on a daily basis and she normally deals with it but pain has been getting progressively worse. Otherwise, denies any fever, chills, diarrhea, vomiting, back pain, headache, shortness of breath, or chest pain. Time Seen by Provider: 01/15/19 18:23 Chief Complaint (Nursing): Abdominal Pain History Per: Patient History/Exam Limitations: no limitations Onset/Duration Of Symptoms: Days, Worse Since (3 days ago) Current Symptoms Are (Timing): Worse Quality Of Discomfort: "Pain" Associated Symptoms: Nausea. denies: Fever, Chills, Vomiting, Diarrhea, Back Pain, Chest Pain, Urinary Symptoms Additional History Per: Prior Records Past Medical History Reviewed: Historical Data, Nursing Documentation, Vital Signs Vital Signs: Last Vital Signs Temp 98.6 F 01/15/19 18:09 Pulse 77 01/15/19 18:09 Resp 18 01/15/19 18:09 BP 118/71 01/15/19 18:09 Pulse Ox 100 01/15/19 18:09 - Medical History PMH: Gastritis, Pancreatitis Denies: Chronic Kidney Disease Surgical History: Endoscopy Family History: States: No Known Family Hx - Social History Hx Tobacco Use: Yes Hx Alcohol Use: Yes Hx Substance Use: No - Immunization History Hx Tetanus Toxoid Vaccination: Yes Hx Influenza Vaccination: No Hx Pneumococcal Vaccination: No Review Of Systems Constitutional: Negative for: Fever, Chills Cardiovascular: Negative for: Chest Pain Respiratory: Negative for: Cough, Shortness of Breath Gastrointestinal: Positive for: Nausea, Abdominal Pain. Negative for: Vomiting, Diarrhea Genitourinary: Negative for: Dysuria, Hematuria Musculoskeletal: Negative for: Neck Pain, Back Pain Skin: Negative for: Rash Neurological: Negative for: Headache Physical Exam - Physical Exam Appears: Non-toxic, No Acute Distress Skin: Warm, Dry, No Rash Head: Normacephalic Eye(s): bilateral: PERRL, EOMI Nose: Normal Oral Mucosa: Moist Neck: Supple Chest: Symmetrical Cardiovascular: Rhythm Regular Respiratory: Normal Breath Sounds, No Rales, No Rhonchi, No Wheezing Gastrointestinal/Abdominal: Soft, No Tenderness, No Distention, No Guarding, No Rebound Extremity: Bilateral: No Pedal Edema, Normal Color And Temperature, Normal ROM Neurological/Psych: Oriented x3, Normal Speech Gait: Steady ED Course And Treatment - Laboratory Results Result Diagrams: 01/15/19 18:47 01/15/19 18:47 Lab Interpretation: No Acute Changes O2 Sat by Pulse Oximetry: 100 (RA) Pulse Ox Interpretation: Normal Progress Note: Patient was treated with IV Protonix and fluids. Reevaluation Time: 19:34 Reassessment Condition: Improved Medical Decision Making Medical Decision Making: Plan - Bloodwork - Protonix 40mg IVP - UA Prior records reviewed. Patient was last seen on 12/17/18 for epigastric pain as sociated with nausea. Labs and CT were ordered. Labs were normal. CT showed mild enteritis. Patient left AMA. Disposition Counseled Patient/Family Regarding: Studies Performed, Diagnosis, Need For Followup - Disposition Referrals: [facility] [Outside] Disposition: HOME/ ROUTINE Disposition Time: 19:37 Condition: STABLE Additional Instructions: Follow up with your piano case maker tomorrow. Continue taking the Pantoprazole and Famotidine as prescribed. Instructions: Gastritis, Ulcer and Gastritis Diet Forms: [employer] (Guatemalan) - Clinical Impression Clinical Impression: Gastritis - Scribe Statement The provider has reviewed the documentation as recorded by the Scribe Venessa Langford All medical record entries made by the Sparkleibe were at my direction and personally dictated by me. I have reviewed the chart and agree that the record accurately reflects my personal performance of the history, physical exam, medical decision making, and the department course for this patient. I have also personally directed, reviewed, and agree with the discharge instructions and disposition.
[2019-01-15 18:49] LABS: HCG,QUALITATIVE URINE NEGATIVE (NEGATIVE)
[2019-01-15 18:52] LABS: BASO % 0.5 % (0.0-2.0); EOS # 0.1 K/uL (0.0-0.7); EOS % 1.8 % (0.0-4.0); HEMOGLOBIN 13.5 g/dL (11.0-16.0); LYMPH # 2.2 K/uL (1.0-4.3); MEAN CELL VOLUME 91.2 fL (81.0-99.0); MEAN CORPUSCULAR HEMOGLOBIN 30.4 pg (27.0-31.0); MEAN CORPUSCULAR HGB CONC 33.3 g/dL (33.0-37.0); MEAN PLATELET VOLUME 8.8 fL (7.2-11.7); MONO # 0.3 K/uL (0.0-0.8); MONO % 4.8 % (0.0-10.0); NEUT # 3.9 K/uL (1.8-7.0); NEUT % 58.9 % (50.0-75.0); RBC 4.43 Mil/uL (3.80-5.20); RED CELL DISTRIBUTION WIDTH 12.7 % (11.5-14.5); WHITE BLOOD COUNT 6.6 K/uL (4.8-10.8)
[2019-01-15 18:58] LABS: SQUAMOUS EPITHIAL 2 /hpf (0-5); URINE BILIRUBIN NEGATIVE (NEGATIVE); URINE BLOOD NEGATIVE (NEGATIVE); URINE CLARITY Clear (Clear); URINE COLOR Yellow (YELLOW); URINE GLUCOSE (UA) NORMAL (Normal); URINE LEUKOCYTE ESTERASE NEG Leu/uL (Negative); URINE PROTEIN 1+ mg/dL (NEGATIVE)
[2019-01-15 19:05] LABS: ALB/GLOB RATIO 1.4 (1.0-2.1); ALT/SGPT 15 U/L (9-52); AST/SGOT 18 U/L (14-36); BLOOD UREA NITROGEN 10 mg/dL (7-17); CALCIUM 8.3 mg/dl (8.6-10.4); GFR NON-AFRICAN AMERICAN > 60; LIPASE 34 U/L (23-300)
[2019-01-15] MEDS ORDERED: Sodium Chloride 0.9% 1,000 ML IV ONE (19:06)
[2019-01-15] MEDS ORDERED: Sodium Chloride 0.9% 1,000 ML ONE (19:16)
[2019-01-15 20:12] VITALS: BP 122/78; PULSE 82; RESP 20; TEMP 98.9
== END 2019-01-15 20:10 | disposition home or self-care (01) ==
LOC: C.ER 18:03
DX: K29.70 Gastritis, unspecified, without bleeding (principal)
CPT/HCPCS: 80053; 81001; 83690; 84703; 85025; 96361; 96374; 99284; C9113; J7030

== ENCOUNTER 2019-01-26 21:54 | Emergency (ER) | payer MEDICAID ==
[2019-01-26 21:55] VITALS: BMI 20.3
[2019-01-26 22:15] VITALS: BP 118/74; PULSE 86; RESP 16; TEMP 97.4; O2SAT 96
--- NOTE | 2019-01-26 22:31 | C.PDOC ---
History Of Present Illness patient with hx H.pylori (untreated) and chronic stomach upset c/o abdominal pain worsening since sunday. She takes famotidine twice daily but staes it longer helps with her pain. she reports taking pantoprazole previously which actually helped her symptoms. She denies vomiting, fever, chills, vaginal discharge or vaginal bleeding. she had a cloth bale header but she moved to the [facility]. Time Seen by Provider: 01/26/19 22:12 Chief Complaint (Nursing): Abdominal Pain History Per: Patient History/Exam Limitations: no limitations Onset/Duration Of Symptoms: Intermittent Episodes Current Symptoms Are (Timing): Still Present Severity: Moderate Location Of Pain/Discomfort: Diffuse Radiation Of Pain To:: None Associated Symptoms: Constipation. denies: Fever, Chills, Nausea, Vomiting, Diarrhea, Back Pain, Chest Pain, Urinary Symptoms Exacerbating Factors: Food Alleviating Factors: None Last Bowel Movement: Yesterday Recent travel outside of the [place]: No Past Medical History Vital Signs: Last Vital Signs Temp 97.4 F L 01/26/19 22:11 Pulse 86 01/26/19 22:11 Resp 16 01/26/19 22:11 BP 118/74 01/26/19 22:11 Pulse Ox 96 01/26/19 22:11 - Medical History PMH: Gastritis, Pancreatitis Denies: Chronic Kidney Disease Surgical History: Endoscopy Family History: States: Hypertension - Social History Hx Tobacco Use: Yes Hx Alcohol Use: Yes (DENIED) Hx Substance Use: Yes - Immunization History Hx Tetanus Toxoid Vaccination: No Hx Influenza Vaccination: No Hx Pneumococcal Vaccination: No Review Of Systems Constitutional: Negative for: Fever, Chills ENT: Negative for: Throat Pain Cardiovascular: Positive for: Chest Pain Respiratory: Negative for: Shortness of Breath Gastrointestinal: Positive for: Abdominal Pain, Constipation. Negative for: Nausea, Vomiting, Diarrhea, Hematochezia, Hematemesis, Rectal Pain Genitourinary: Negative for: Dysuria Neurological: Negative for: Weakness, Numbness, Confusion Physical Exam - Physical Exam Appears: Well, Non-toxic, No Acute Distress Head: Atraumatic, Normacephalic Eye(s): bilateral: Normal Inspection, PERRL, EOMI, Other (no scleral icterus) Neck: Normal, Normal ROM Cardiovascular: Rhythm Regular Respiratory: Normal Breath Sounds Gastrointestinal/Abdominal: Normal Exam, Tenderness (RUQ), No Mass, No Distention, Guarding, No Rebound, No Hernia Back: Normal Inspection, No CVA Tenderness Neurological/Psych: Oriented x3, Normal Speech, Normal Cognition ED Course And Treatment O2 Sat by Pulse Oximetry: 96 Medical Decision Making Medical Decision Making: The patient eloped from the ED prior to receiving discharge instruction or medications. Disposition Counseled Patient/Family Regarding: Diagnosis, Need For Followup - Disposition Referrals: Sarah Sue [Staff Provider] - Disposition: HOME/ ROUTINE Disposition Time: 22:52 Condition: STABLE Prescriptions: Mag Hydrox/Aluminum Hyd/Simeth [Maalox Advanced Suspension] 30 ml PO TID #355 ml Pantoprazole [Protonix EC Tab] 20 mg PO DAILY 30 Days ect Instructions: Gastritis (DC) Forms: [facility] (Filipino), General Discharge Instructions - Clinical Impression Clinical Impression: Gastritis
[2019-01-26 22:54] LABS: SQUAMOUS EPITHIAL 4 /hpf (0-5); URINE BACTERIA RARE (<OCC); URINE BILIRUBIN NEGATIVE (NEGATIVE); URINE BLOOD NEGATIVE (NEGATIVE); URINE CLARITY Hazy (Clear); URINE COLOR Yellow (YELLOW); URINE GLUCOSE (UA) NORMAL (Normal); URINE LEUKOCYTE ESTERASE NEG Leu/uL (Negative); URINE PROTEIN 1+ mg/dL (NEGATIVE)
== END 2019-01-26 22:50 | disposition home or self-care (01) ==
LOC: C.ER 21:54
DX: K29.70 Gastritis, unspecified, without bleeding (principal)